=== PATIENT | male | born 1945 | race Caucasian/White ===

== ENCOUNTER 2017-04-21 18:14 | Inpatient (IN) | payer MEDICARE, OTHER ==
[~2017-04-21] VITALS: Ht 172.7 cm; Wt 50.5 kg
[2017-04-21] MEDS ORDERED: SODIUM CHLORIDE 0.9% 1L BAG IV* STA (18:56)
[2017-04-21] MEDS ORDERED: CEFEPIME 1GM/50 ML (PMX) 50 ML IVPB ONE (19:00)
[2017-04-21] MEDS ORDERED: IBUPROFEN 600 MG TAB PO ONE (19:00)
[2017-04-21 19:24] LABS: ABNORMAL IP MESSAGE 1; BASOPHILS % 0.2 % (0.0-2.0); HEMATOCRIT 42.7 % (42.0-52.0); HEMOGLOBIN 14.3 g/dl (14.0-18.0); LYMPHOCYTES # 0.6 10^3/ul (0.8-2.9); LYMPHOCYTES % 3.4 % (15.0-51.0); MEAN CORPUSCULAR HEMOGLOBIN 29.9 pg (29.0-33.0); MEAN CORPUSCULAR HGB CONC 33.5 g/dl (32.0-37.0); MEAN CORPUSCULAR VOLUME 89.1 fl (82.0-101.0); MEAN PLATELET VOLUME 9.3 fl (7.4-10.4); MONOCYTE # 1.1 10^3/ul (0.3-0.9); MONOCYTES % 6.4 % (0.0-11.0); NEUTROPHILS % 89.5 % (39.0-77.0); PLATELET COUNT 192 10^3/UL (140-415); POSITIVE DIFF @See below; RED BLOOD COUNT 4.79 10^6/ul (4.70-6.10); RED CELL DISTRIBUTION WIDTH 13.7 % (11.5-14.5); WHITE BLOOD COUNT 16.9 10^3/ul (4.8-10.8)
[2017-04-21 19:41] LABS: INR 0.88; PARTIAL THROMBOPLASTIN TIME 26.7 Sec (25.0-35.0); PROTIME 11.9 Sec (12.2-14.2); PT RATIO 0.9
[2017-04-21 19:44] LABS: ALANINE AMINOTRANSFERASE 48 IU/L (13-69); ALBUMIN/GLOBULIN RATIO 1.21; ALKALINE PHOSPHATASE 77 IU/L (42-121); ANION GAP 19 (8-16); ASPARTATE AMINO TRANSFERASE 32 IU/L (15-46); BILIRUBIN,INDIRECT 0.8 mg/dl (0-1.1); BILIRUBIN,TOTAL 0.8 mg/dl (0.2-1.3); BLOOD UREA NITROGEN 21 mg/dl (7-20); CALCIUM 9.5 mg/dl (8.4-10.2); CARBON DIOXIDE 30 mmol/L (21-31); CHLORIDE 96 mmol/L (97-110); CREATININE 0.87 mg/dl (0.61-1.24); GLUCOSE 121 mg/dl (70-220); POTASSIUM 4.2 mmol/L (3.5-5.1); SODIUM 141 mmol/L (135-144); TOTAL PROTEIN 7.3 g/dl (6.1-8.1)
--- NOTE | 2017-04-21 19:51 | RADRPT ---
PROCEDURE: Portable chest x-ray. CLINICAL INDICATION: 71 years of age, male. Weakness. Possible sepsis.. TECHNIQUE: Portable AP view of the chest. COMPARISON: None available. FINDINGS: Cardiomediastinal contours are normal. There are reticulonodular opacities at bilateral lung apices with associated ground-glass opacity wi th mild apical pleural thickening. Mid and lower lung zones are clear. Negative for pleural effusion or pneumothorax. No acute bony abnormality. IMPRESSION: Reticulonodular and ground-glass opacities at bilateral lung apices are nonspecific. They may be du e to typical or atypical tuberculosis or other granulomatous infections. In this clinical setting o f weakness and sepsis, active disease must be considered. Correlation with previous imaging would b e helpful. The patient may benefit from further evaluation with CT. Critical results were discussed with Dr. Chang by Dr. Amee Chen on April 21, 2017 at 07:45 p.m.. RPTAT: HCTS Physician Delvis Date Time Electronically viewed and signed by Physician Delvis on 04/21/2017 19:50 CS/
[2017-04-21 19:57] LABS: ADD UMIC NO; UR ASCORBIC ACID NEGATIVE (NEGATIVE); UR BILIRUBIN (Dip) NEGATIVE (NEGATIVE); UR BLOOD (Dip) NEGATIVE (NEGATIVE); UR CLARITY CLEAR (CLEAR); UR COLOR AMBER (YELLOW); UR GLUCOSE (Dip) NEGATIVE (NEGATIVE); UR KETONES (Dip) TRACE mg/dL (NEGATIVE); UR LEUKOCYTE ESTERASE (Dip) NEGATIVE Leu/ul (NEGATIVE); UR NITRITE (Dip) NEGATIVE (NEGATIVE); UR SPECIFIC GRAVITY (Dip) 1.018 (1.003-1.030); UR TOTAL PROTEIN (Dip) NEGATIVE (NEGATIVE); UR UROBILINOGEN (Dip) 1+ mg/dL (NEGATIVE)
[2017-04-21 19:58] LABS: TROPONIN-I < 0.012 ng/ml (0.00-0.12)
[2017-04-21] MEDS ORDERED: AZITHROMYCIN 500MG/NS (PMX) 250 ML IVPB ONE (20:00)
[2017-04-21] MEDS ORDERED: VANCOMYCIN 1 GM (PMX) 250 ML IVPB SCH (20:00)
[2017-04-21 21:34] VITALS: TEMP 98.5
[2017-04-21] MEDS ORDERED: TAMS0.4C2 PO (21:35)
[2017-04-21] MEDS ORDERED: GABA300C16 PO (21:36)
[2017-04-21] MEDS ORDERED: DOCU-159 PO (21:37)
[2017-04-21] MEDS ORDERED: HYDR-906 PO (21:37)
--- NOTE | 2017-04-21 22:05 | ERA ---
ER Documentation Chief Complaint Date/Time DATE: 04/21/17 TIME: 21:52 Chief Complaint BIB RA FOR EVAL OF DIZZINESS NAUSEA AFTER TAKING NORCO. HAD BACK SX TUES HPI 71-year-old man brought in by EMS from home for nausea and vomiting shortly after using oral opioid analgesics for back pain. He is status post lumbar spine surgery 3 days ago and was prescribed opioids to use for pain control. Daughter who is at the bedside states he has not been eating much after the surgery. He has had clear nonbloody nonbilious emesis 2, no diarrhea, no dysuria, no cough, no headache or blurry vision. Patient denies back pain at this time. ROS All systems reviewed and are negative except as per history of present illness. Medications Home Meds Reported Medications Docusate Sodium* (Docusate Sodium*) 100 Mg Capsule, 100 MG PO BID, #60 CAP 04/21/17 Hydrocodone/Acetaminophen ([place] 5-325 Tablet) 1 Each Tablet, 1 EACH PO Q6H, TAB 04/21/17 Gabapentin* (Gabapentin*) Unknown Strength Capsule, 1 CAP PO QHS, #60 CAP 04/21/17 Tamsulosin Hcl* (Tamsulosin Hcl*) Unknown Strength Cap.er.24h, 1 CAP PO HS, CAP 04/21/17 Allergies Allergies: Coded Allergies: No Known Allergy (Unverified , 04/21/17) PMhx/Soc Hypertension, prostate problems, recent lumbar spine surgery Medical and Surgical Hx: pt denies Medical Hx, pt denies Surgical Hx History of Surgery: No Anesthesia Reaction: No Hx Neurological Disorder: No Hx Respiratory Disorders: No Hx Cardiac Disorders: No Hx Psychiatric Problems: No Hx Miscellaneous Medical Probl: No Hx Alcohol Use: No Hx Substance Use: No Hx Tobacco Use: No Smoking Status: Never smoker FmHx Family History: No diabetes Physical Exam Vitals Vital Signs Date Time Temp Pulse Resp B/P Pulse Ox O2 Delivery O2 Flow Rate FiO2 04/21/17 21:34 98.5 76 18 113/68 98 Room Air 04/21/17 18:16 101.5 100 19 132/69 99 Physical Exam GENERAL: Well-developed, dehydrated, febrile HEENT: Dry mucous membranes, pink conjunctiva, no cervical spine tenderness or step-off deformities, no goiter, no jaundice or icterus, extraocular movements intact without pain. No submandibular induration, and no pharyngeal erythema NEURO: Alert and oriented 3, cranial nerves II through XII intact bilaterally, pupils constricted but reactive bilaterally, no focal deficits or facial asymmetry, sensation intact distally Strength 5/5 in upper and lower extremities bilaterally CARDIAC: Tachycardic and regular, no murmurs rubs or gallops LUNGS: Poor breath sounds bilaterally ABDOMEN: Soft nontender, no guarding, no rigidity, no rebound, no psoas sign no obturator sign. Normoactive bowel sounds SKIN: Warm and dry to touch, the surgical incision site to the mid lumbar spine appears clean and dry with granulation tissue present, no midline spinous process tenderness to touch, no skin induration or erythema, no purulent discharge EXTREMITIES: No clubbing cyanosis or edema, calves are bilaterally symmetrical, no Homans sign, no popliteal cord sign. Distal pulses equal and bilateral PSYCH: Normal affect without agitation or irritability Result Diagram: 04/21/17190404/21/171904 Results 24 hrs Laboratory Tests Test 04/21/17 19:05 04/21/17 19:30 04/21/17 21:02 White Blood Count 16.910^3/ul Red Blood Count 4.7910^6/ul Hemoglobin 14.3g/dl Hematocrit 42.7% Mean Corpuscular Volume 89.1fl Mean Corpuscular Hemoglobin 29.9pg Mean Corpuscular Hemoglobin Concent 33.5g/dl Red Cell Distribution Width 13.7% Platelet Count 15657^3/UL Mean Platelet Volume 9.3fl Neutrophils % 89.5% Lymphocytes % 3.4% Monocytes % 6.4% Eosinophils % 0.0% Basophils % 0.2% Nucleated Red Blood Cells % 0.0/100WBC Neutrophils # (Manual) 15.110^3/ul Lymphocytes # 0.610^3/ul Monocytes # 1.110^3/ul Eosinophils # 0.010^3/ul Basophils # 0.010^3/ul Nucleated Red Blood Cells # 0.010^3/ul Prothrombin Time 11.9Sec Prothrombin Time Ratio 0.9 INR International Normalized Ratio 0.88 Activated Partial Thromboplast Time 26.7Sec Sodium Level 141mmol/L Potassium Level 4.2mmol/L Chloride Level 96mmol/L Carbon Dioxide Level 30mmol/L Anion Gap 19 Blood Urea Nitrogen 21mg/dl Creatinine 0.87mg/dl Glucose Level 121mg/dl Lactic Acid Level 1.5mmol/L 1.0mmol/L Calcium Level 9.5mg/dl Total Bilirubin 0.8mg/dl Direct Bilirubin 0.00mg/dl Indirect Bilirubin 0.8mg/dl Aspartate Amino Transf (AST/SGOT) 32IU/L Alanine Aminotransferase (ALT/SGPT) 48IU/L Alkaline Phosphatase 77IU/L Troponin I < 0.012ng/ml Total Protein 7.3g/dl Albumin 4.0g/dl Globulin 3.30g/dl Albumin/Globulin Ratio 1.21 Lipase 45U/L Urine Color GWENDOLYN Urine Clarity CLEAR Urine pH 5.0 Urine Specific [place] 1.018 Urine Ketones TRACEmg/dL Urine Nitrite NEGATIVEmg/dL Urine Bilirubin NEGATIVEmg/dL Urine Urobilinogen 1+mg/dL Urine Leukocyte Esterase NEGATIVELeu/ul Urine Hemoglobin NEGATIVEmg/dL Urine Glucose NEGATIVEmg/dL Urine Total Protein NEGATIVEmg/dl Current Medications Medications (Trade) Dose Ordered Sig/Vickie Route PRN Reason Start Time Stop Time Status Last Admin Dose Admin Sodium Chloride (NS) 2,000 ml BOLUS OVER 2 HOURS STAT IV* 04/21/17 18:56 04/21/17 18:59 DC 04/21/17 19:28 Ibuprofen 600 mg 600 mg ONCE ONCE PO 04/21/17 19:00 04/21/17 19:01 DC 04/21/17 19:27 Cefepime HCl 50 ml @ 100 mls/hr ONCE ONCE IVPB 04/21/17 19:00 04/21/17 19:29 DC 04/21/17 19:28 Azithromycin 250 ml @ 250 mls/hr ONCE ONCE IVPB 04/21/17 20:00 04/21/17 21:40 DC 04/21/17 21:47 Vancomycin HCl (Vancocin) 250 ml @ 125 mls/hr ONCE IVPB 04/21/17 20:00 04/21/17 21:59 DC Procedures/MDM IV line was established patient was placed on director of cardiac rehabilitation rhythm strip revealed a sinus tachycardia at 100 bpm. Patient was febrile. Blood and urine cultures have been ordered results are pending I will follow-up. EKG performed, read by me: 92 bpm, normal sinus rhythm, normal axis, no acute ST segment changes, narrow QRS complex, with good R-wave progression in precordial leads. One view chest x-ray performed, read by me there are no acute infiltrates, no pneumothorax, no end of the diaphragm. Of note radiologist read bilateral upper lobe ground-glass opacities, which in the setting of fever is concerning for tuberculosis. I administered 2 L normal saline intravenously for dehydration, Zofran 4 mg IV, cefepime 1 g IV, vancomycin 1 g IV. For fever patient received ibuprofen 600 mg p.o. Patient had no further episodes of vomiting. CBC reveals a leukocytosis of 17, electrolytes revealed dehydration with a BUN/ creatinine of 21/0.9, liver function tests normal, troponin negative. Urine analysis negative for infection. Patient's infectious symptoms have not stabilized and the patient is at risk of rapid decompensation. The patient will be admitted for careful hydration, antibiotic therapy, and infectious source control. Severe Sepsis Assessment: Infectious Source: Pulmonary No signs of endorgan damage Severe Sepsis Managment: Blood Cultures X 2 before broad spectrum antibiotics initiated within 3 hours of recognition. 30 ml/kg NS bolus Completed Initial Lactate: 1.5 Repeat Lactate 1.0 Critical Care: Time: 40 minutes, this was time separate from other billable procedures. Treatments/Evaluations: Emergent fluid management, while maintaining close respiratory support. Immediate broad spectrum antibiotic therapy. Simultaneous assessment for possible sources in order to direct therapy. Consideration for invasive and chemical support to prevent respiratory or cardiac collapse. Septic Shock Assessment (1 hour post 30 ml/kg fluid bolus): Hypotension (SBP < 90 or 40 mmHg drop, MAP < 65): No Lactic acid > 4.0 No Perfusion Reassessment for Septic Shock: Temp 98.8, pulse 88, respiratory rate 18 breaths per minute, blood pressure 120/ 80. Heart Exam: Regular rate rhythm Lung Exam: No Crackles Capillary Refill: Less than 2 second Peripheral Pulses: Radially present Skin: Correll warm and dry Hypotensive Treatment (not required for isolated lactic acid elevation): Comfort Care: No Central LIne: Not indicated Vasopressor started: Not indicated I considered further perfusion assessment with CVP measurement, SCVO2, bedside ultrasound volume assessment, passive leg raise, trial of further fluid bolus. And preceded with IV fluid hydration, antibiotics, and isolation Accepting Care Team: Current data and ongoing care discussed. Time: Time of admission Primary Provider: Hospitalist Consulting: Infectious disease Outstanding Data: none Departure Diagnosis: Primary Impression: Nausea and vomiting Qualified Code: R11.2 - Non-intractable vomiting with nausea, unspecified vomiting type Additional Impressions: Dehydration Pneumonia Qualified Code: J18.9 - Pneumonia of both upper lobes due to infectious organism Sepsis Qualified Code: A41.9 - Sepsis, due to unspecified organism Condition: CURRY Nicolas MD Apr 21, 2017 22:03
--- NOTE | 2017-04-21 23:08 | RADRPT ---
PROCEDURE: CT Abdomen and Pelvis without contrast. CLINICAL INDICATION: Abdominal pain. TECHNIQUE: A CT scan of the abdomen and pelvis was performed without intravenous contrast. Cerna l and sagittal reformatted images were generated. Images were reviewed on a high-resolution PACS wor kstation. CTDIvol: 7.67 mGy. DLP: 371.72 mGy-cm. One or more of the following dose reduction techniques were used: - Automated exposure control. - Adjustment of the mA and/or kV according to patient size. - Use of iterative reconstruction technique. COMPARISON: None. FINDINGS: The lung bases are clear. Evaluation of the abdominal and pelvic viscera is limited by the lack of oral and intravenous contra st. The liver is unremarkable. There are stones in the gallbladder. The common bile duct is not dilated . The spleen is not enlarged. No pancreatic lesion is identified and there is no pancreatic ductal d ilatation. The adrenal glands are unremarkable. The kidneys are normal in size. There is no perinephric fat stranding. No hydronephrosis is seen. No urinary stone is identified. There is a small hiatal hernia. The small and large bowel are normal in caliber. There is no bowel w all thickening. There is a moderate volume of retained stool in the colon. The appendix is not iden tified. The urinary bladder is unremarkable. The pelvic organs are within normal limits. No lymphadenopathy is identified. There is no ascites. No pneumoperitoneum is seen. There are mild a rterial calcifications. No suspicious osseous lesion is idenitified. IMPRESSION: 1. No inflammation, mass, or lymphadenopathy. 2. No obstructive uropathy or urinary stone. 3. The appendix is not identified. If there is concern for appendicitis, close clinical follow-up is recommended. 4. Cholelithiasis. 5. Small hiatal hernia. 6. Moderate volume of retained stool in the colon. RPTAT: HTAR .Martinez Sim MD, Date Time Electronically viewed and signed by .Martinez Sim MD, on 04/21/2017 23:08 .R/
--- NOTE | 2017-04-21 23:27 | HP ---
Date/Time of Note Date/Time of Note DATE: 04/21/17 TIME: 23:27 Assessment/Plan VTE Prophylaxis VTE Prophylaxis Intervention: LMWH Assessment/Plan Assessment/Plan 71-year-old male who presents with fever cough and vomiting managed for the following 1. Sepsis likely secondary to #2 * Patient meets sepsis criteria with leukocytosis, fever and tachycardia 2. Biapical pneumonia likely healthcare associated in view of recent surgery 3 days ago * Radiology findings were concerning for possible tuberculosis and as such patient is on isolation, however he does not have risk factors for tuberculosis. Will however maintain isolation and get CT chest to better define lung parenchyma and proceed from there. 3. Recent back surgery laminectomy stable 4. Hypertension currently with good control 5. Chronic BPH PLAN: In addition to the above, we will provide supportive care,pain control, antiemetics, empiric abx , and resume home meds and titrate as needed. Further interventions will be dependent on clinical course and findings Prophylaxis : Lovenox / Pepcid HPI/ROS Admit Date/Time Admit Date/Time 04/21/17 Hx of Present Illness 71-year-old male with a past medical history of hypertension and BPH who recently underwent laminectomy 3 days ago was brought to the emergency room today by his daughter because of fever cough vomiting and abdominal pain. Symptoms started about a day ago and have been worsening. He denies chest pain or shortness of breath. Denies headaches, vision changes, passing out episodes or neurologic symptoms. Preliminary chest x-ray in the emergency room is concerning for biapical pneumonia, patient is being admitted for further workup and management. He has no hx of travel or contact with persons with chronic cough. ROS 12 point review if systems was done and pertinent findings are as noted. PMH/Family/Social Past Medical History * BPH * HTN Past Surgical History * appendectomy * recent Laminectomy Family History Significant Family History: no pertinent family hx Social History Smoking Status: Never smoker Exam/Review of Systems Vital Signs Vitals VS - Last 72 Hours, by Label Date Time Temp Pulse Resp B/P Pulse Ox O2 Delivery O2 Flow Rate FiO2 04/21/17 21:34 98.5 76 18 113/68 98 Room Air 04/21/17 18:16 101.5 100 19 132/69 99 Vital Signs Date Time Temp Pulse Resp B/P Pulse Ox O2 Delivery O2 Flow Rate FiO2 04/21/17 21:34 98.5 76 18 113/68 98 Room Air Exam Constitutional: alert, oriented, No distress Head: normocephalic Eyes: PERRL ENMT: mucosa pink and moist Neck: supple Respiratory: diminished breath sounds, No crackles/rales Cardiovascular: regular rate and rhythm, No murmurs/extra sounds Gastrointestinal: bowel sounds, non-tender, soft Extremities: No edema Neurological: nl mental status Skin: other Lymph: other (surgical site on his back is healing an d is clean) Labs Result Diagram: 04/21/17190404/21/171904 Procedures Procedures Laboratory Tests Test 04/21/17 19:05 04/21/17 19:30 04/21/17 21:02 White Blood Count 16.910^3/ul Red Blood Count 4.7910^6/ul Hemoglobin 14.3g/dl Hematocrit 42.7% Mean Corpuscular Volume 89.1fl Mean Corpuscular Hemoglobin 29.9pg Mean Corpuscular Hemoglobin Concent 33.5g/dl Red Cell Distribution Width 13.7% Platelet Count 21168^3/UL Mean Platelet Volume 9.3fl Neutrophils % 89.5% Lymphocytes % 3.4% Monocytes % 6.4% Eosinophils % 0.0% Basophils % 0.2% Nucleated Red Blood Cells % 0.0/100WBC Neutrophils # (Manual) 15.110^3/ul Lymphocytes # 0.610^3/ul Monocytes # 1.110^3/ul Eosinophils # 0.010^3/ul Basophils # 0.010^3/ul Nucleated Red Blood Cells # 0.010^3/ul Prothrombin Time 11.9Sec Prothrombin Time Ratio 0.9 INR International Normalized Ratio 0.88 Activated Partial Thromboplast Time 26.7Sec Sodium Level 141mmol/L Potassium Level 4.2mmol/L Chloride Level 96mmol/L Carbon Dioxide Level 30mmol/L Anion Gap 19 Blood Urea Nitrogen 21mg/dl Creatinine 0.87mg/dl Glucose Level 121mg/dl Lactic Acid Level 1.5mmol/L 1.0mmol/L Calcium Level 9.5mg/dl Total Bilirubin 0.8mg/dl Direct Bilirubin 0.00mg/dl Indirect Bilirubin 0.8mg/dl Aspartate Amino Transf (AST/SGOT) 32IU/L Alanine Aminotransferase (ALT/SGPT) 48IU/L Alkaline Phosphatase 77IU/L Troponin I < 0.012ng/ml Total Protein 7.3g/dl Albumin 4.0g/dl Globulin 3.30g/dl Albumin/Globulin Ratio 1.21 Lipase 45U/L Urine Color GWENDOLYN Urine Clarity CLEAR Urine pH 5.0 Urine Specific [place] 1.018 Urine Ketones TRACEmg/dL Urine Nitrite NEGATIVEmg/dL Urine Bilirubin NEGATIVEmg/dL Urine Urobilinogen 1+mg/dL Urine Leukocyte Esterase NEGATIVELeu/ul Urine Hemoglobin NEGATIVEmg/dL Urine Glucose NEGATIVEmg/dL Urine Total Protein NEGATIVEmg/dl Current Medications Medications (Trade) Dose Ordered Sig/Vickie Route PRN Reason Start Time Stop Time Status Last Admin Dose Admin Sodium Chloride (NS) 2,000 ml BOLUS OVER 2 HOURS STAT IV* 04/21/17 18:56 04/21/17 18:59 DC 04/21/17 19:28 2,000 ML Ibuprofen 600 mg 600 mg ONCE ONCE PO 04/21/17 19:00 04/21/17 19:01 DC 04/21/17 19:27 600 MG Cefepime HCl 50 ml @ 100 mls/hr ONCE ONCE IVPB 04/21/17 19:00 04/21/17 19:29 DC 04/21/17 19:28 100 MLS/HR Azithromycin 250 ml @ 250 mls/hr ONCE ONCE IVPB 04/21/17 20:00 04/21/17 21:40 DC 04/21/17 21:47 250 MLS/HR Vancomycin HCl (Vancocin) 250 ml @ 125 mls/hr ONCE IVPB 04/21/17 20:00 04/21/17 21:59 DC 04/21/17 23:06 125 MLS/HR PROCEDURE: CT Abdomen and Pelvis without contrast. CLINICAL INDICATION: Abdominal pain. TECHNIQUE: A CT scan of the abdomen and pelvis was performed without intravenous contrast. Coronal and sagittal reformatted images were generated. Images were reviewed on a high-resolution PACS workstation. CTDIvol: 7.67 mGy. DLP: 371.72 mGy-cm. One or more of the following dose reduction techniques were used: - Automated exposure control. - Adjustment of the mA and/or kV according to patient size. - Use of iterative reconstruction technique. COMPARISON: None. FINDINGS: The lung bases are clear. Evaluation of the abdominal and pelvic viscera is limited by the lack of oral and intravenous contrast. The liver is unremarkable. There are stones in the gallbladder. The common bile duct is not dilated. The spleen is not enlarged. No pancreatic lesion is identified and there is no pancreatic ductal dilatation. The adrenal glands are unremarkable. The kidneys are normal in size. There is no perinephric fat stranding. No hydronephrosis is seen. No urinary stone is identified. There is a small hiatal hernia. The small and large bowel are normal in caliber. There is no bowel wall thickening. There is a moderate volume of retained stool in the colon. The appendix is not identified. The urinary bladder is unremarkable. The pelvic organs are within normal limits. No lymphadenopathy is identified. There is no ascites. No pneumoperitoneum is seen. There are mild arterial calcifications. No suspicious osseous lesion is idenitified. IMPRESSION: 1. No inflammation, mass, or lymphadenopathy. 2. No obstructive uropathy or urinary stone. 3. The appendix is not identified. If there is concern for appendicitis, close clinical follow-up is recommended. 4. Cholelithiasis. 5. Small hiatal hernia. 6. Moderate volume of retained stool in the colon. PROCEDURE: Portable chest x-ray. CLINICAL INDICATION: 71 years of age, male. Weakness. Possible sepsis.. TECHNIQUE: Portable AP view of the chest. COMPARISON: None available. FINDINGS: Cardiomediastinal contours are normal. There are reticulonodular opacities at bilateral lung apices with associated ground-glass opacity with mild apical pleural thickening. Mid and lower lung zones are clear. Negative for pleural effusion or pneumothorax. No acute bony abnormality. IMPRESSION: Reticulonodular and ground-glass opacities at bilateral lung apices are nonspecific. They may be due to typical or atypical tuberculosis or other granulomatous infections. In this clinical setting of weakness and sepsis, active disease must be considered. Correlation with previous imaging would be helpful. The patient may benefit from further evaluation with CT. Critical results were discussed with Dr. Chang by Dr. Amee Chen on April 21, 2017 at 07:45 p.m.. RPTAT: HCTS Physician Delvis Date Time Electronically viewed and signed by Derrick Chen Physician on 04/21/2017 19: 50 CHARO ANDRADE Apr 21, 2017 23:27
[2017-04-21 23:30] VITALS: BP 101/56; PULSE 68; RESP 19
[2017-04-21 23:52] VITALS: Ht 172.7 cm; Wt 50.5 kg
[2017-04-22] MEDS ORDERED: ONDANSETRON 4 MG INJ IV PRN (02:30)
[2017-04-22 05:08] VITALS: BP 108/53; RESP 18
[2017-04-22 06:03] LABS: BASOPHILS % 0.2 % (0.0-2.0); EOSINOPHILS % 0.2 % (0.0-7.0); HEMATOCRIT 36.5 % (42.0-52.0); HEMOGLOBIN 11.7 g/dl (14.0-18.0); LYMPHOCYTES # 1.7 10^3/ul (0.8-2.9); LYMPHOCYTES % 14.3 % (15.0-51.0); MEAN CORPUSCULAR HGB CONC 32.1 g/dl (32.0-37.0); MEAN CORPUSCULAR VOLUME 90.3 fl (82.0-101.0); MEAN PLATELET VOLUME 9.8 fl (7.4-10.4); MONOCYTE # 0.9 10^3/ul (0.3-0.9); MONOCYTES % 7.6 % (0.0-11.0); NEUTROPHILS % 77.3 % (39.0-77.0); PLATELET COUNT 179 10^3/UL (140-415); RED BLOOD COUNT 4.04 10^6/ul (4.70-6.10); WHITE BLOOD COUNT 12.2 10^3/ul (4.8-10.8)
[2017-04-22 06:39] LABS: CALCIUM 8.5 mg/dl (8.4-10.2); CREATININE 0.61 mg/dl (0.61-1.24); MAGNESIUM 2.1 mg/dl (1.7-2.5); PHOSPHORUS 3.8 mg/dl (2.5-4.9); POTASSIUM 4.5 mmol/L (3.5-5.1)
[2017-04-22] MEDS: CEFTRIAXONE 1 GM/50 ML (PMX) 50 ML IVPB SCH (09:13)
[2017-04-22] MEDS: FAMOTIDINE 20 MG TAB PO SCH ×2 (09:14→20:33)
[2017-04-22] MEDS: DOCUSATE SODIUM 100 MG CAP PO SCH ×2 (09:14→20:34)
[2017-04-22 14:28] VITALS: BP 110/55; RESP 18
--- NOTE | 2017-04-22 15:36 | PN ---
Date/Time of Note Date/Time of Note DATE: 04/22/17 TIME: 15:31 Assessment/Plan VTE Prophylaxis VTE Prophylaxis Intervention: SCD's Lines/Catheters IV Catheter Type (from Nrsg): Saline Lock Assessment/Plan Assessment/Plan 1. Abdominal pain with vomiting, probably constipation related, resolved 2. Cholelithiasis,unlikely the cause of #1, normal LFTs 3. Leukocytosis, improving, ?stress related 4. Apical infiltrates in lungs, follow up with CT scan 5. Recent lumbar laminectomy, stable, PT Subjective 24 Hr Interval Summary Free Text/Dictation asymptomatic today Exam/Review of Systems Vital Signs Vitals Vital Signs Date Time Temp Pulse Resp B/P Pulse Ox O2 Delivery O2 Flow Rate FiO2 04/22/17 14:28 98.0 70 18 110/55 97 04/21/17 23:30 Room Air Intake and Output 04/21/17 04/21/17 04/22/17 15:00 23:00 07:00 Intake Total 450 ml Output Total 800 ml Balance -350 ml Exam Constitutional: alert, oriented, well developed Psych: nl mood/affect, no complaints Head: atraumatic, normocephalic Eyes: EOMI, PERRL, nl conjunctiva, nl lids ENMT: nl external ears & nose, nl lips & teeth, nl nasal mucosa & septum Neck: non-tender, supple Respiratory: clear to auscultation, normal air movement, No congested cough, No crackles/rales, No diminished breath sounds, No intercostal retraction, No labored breathing, No other, No respirations, No tactile fremitus, No wheezing Cardiovascular: nl pulses, regular rate and rhythm, No S3, No S4, No bruits, No diastolic murmur, No edema, No gallop, No irregular rhythm, No jugular venous distention (JVD), No murmurs/extra sounds, No other, No rub, No systolic murmur Gastrointestinal: nl liver, spleen, non-tender, soft, No ascites, No bowel sounds, No distended, No firm, No hepatomegaly, No mass , No other, No rebound or guarding, No splenomegaly, No surgical scars, No tender Musculoskeletal: nl extremities to inspection Extremities: normal pulses, No calf tenderness, No clubbing, No cyanosis, No edema, No other, No palpable cord, No pitting pedal edema, No tenderness Neurological: [employer] II-XII intact, nl mental status, nl speech, nl strength Skin: nl turgor Lymph: nl lymph nodes Results Result Diagram: 04/22/17 0516 04/22/17 0516 Results 24 hrs Laboratory Tests Test 04/21/17 19:05 04/21/17 19:30 04/21/17 21:02 04/21/17 23:15 White Blood Count 16.9 H Red Blood Count 4.79 Hemoglobin 14.3 Hematocrit 42.7 Mean Corpuscular Volume 89.1 Mean Corpuscular Hemoglobin 29.9 Mean Corpuscular Hemoglobin Concent 33.5 Red Cell Distribution Width 13.7 Platelet Count 192 Mean Platelet Volume 9.3 Neutrophils % 89.5 H Lymphocytes % 3.4 L Monocytes % 6.4 Eosinophils % 0.0 Basophils % 0.2 Nucleated Red Blood Cells % 0.0 Neutrophils # (Manual) 15.1 H Lymphocytes # 0.6 L Monocytes # 1.1 H Eosinophils # 0.0 Basophils # 0.0 Nucleated Red Blood Cells # 0.0 Prothrombin Time 11.9 L Prothrombin Time Ratio 0.9 INR International Normalized Ratio 0.88 Activated Partial Thromboplast Time 26.7 Sodium Level 141 Potassium Level 4.2 Chloride Level 96 L Carbon Dioxide Level 30 Anion Gap 19 H Blood Urea Nitrogen 21 H Creatinine 0.87 Glucose Level 121 Lactic Acid Level 1.5 1.0 1.8 Calcium Level 9.5 Total Bilirubin 0.8 Direct Bilirubin 0.00 Indirect Bilirubin 0.8 Aspartate Amino Transf (AST/SGOT) 32 Alanine Aminotransferase (ALT/SGPT) 48 Alkaline Phosphatase 77 Troponin I < 0.012 Total Protein 7.3 Albumin 4.0 Globulin 3.30 H Albumin/Globulin Ratio 1.21 Lipase 45 Urine Color GWENDOLYN Urine Clarity CLEAR Urine pH 5.0 Urine Specific [place] 1.018 Urine Ketones TRACE A Urine Nitrite NEGATIVE Urine Bilirubin NEGATIVE Urine Urobilinogen 1+ H Urine Leukocyte Esterase NEGATIVE Urine Hemoglobin NEGATIVE Urine Glucose NEGATIVE Urine Total Protein NEGATIVE Test 04/22/17 05:16 White Blood Count 12.2 #H Red Blood Count 4.04 L Hemoglobin 11.7 L Hematocrit 36.5 L Mean Corpuscular Volume 90.3 Mean Corpuscular Hemoglobin 29.0 Mean Corpuscular Hemoglobin Concent 32.1 Red Cell Distribution Width 14.0 Platelet Count 179 Mean Platelet Volume 9.8 Neutrophils % 77.3 H Lymphocytes % 14.3 L Monocytes % 7.6 Eosinophils % 0.2 Basophils % 0.2 Nucleated Red Blood Cells % 0.0 Neutrophils # (Manual) 9.4 H Lymphocytes # 1.7 Monocytes # 0.9 Eosinophils # 0.0 Basophils # 0.0 Nucleated Red Blood Cells # 0.0 Sodium Level 140 Potassium Level 4.5 Chloride Level 103 Carbon Dioxide Level 30 Anion Gap 12 # Blood Urea Nitrogen 15 Creatinine 0.61 Glucose Level 103 Hemoglobin A1c 5.6 Calcium Level 8.5 Phosphorus Level 3.8 Magnesium Level 2.1 Medications Medications Current Medications Acetaminophen/ Hydrocodone Bitart 1 tab 1 tab Q6H PRN PO pain; Start 04/22/17 at 02:30 Ceftriaxone Sodium 50 ml @ 100 mls/hr Q24H IVPB Last administered on 09:13; Admin Dose 100 MLS/HR; Start 04/22/17 at 09:00 Azithromycin/ Sodium Chloride (Zithromax/NS) 250 ml @ 250 mls/hr Q24H IVPB ; Start 04/22/17 at 22:00 Docusate Sodium (Colace) 100 mg BID PO Last administered on 04/22/17 09:14; Admin Dose 100 MG; Start 04/22/17 at 09:00 Ondansetron HCl (Zofran Inj) 4 mg Q6H PRN IV NAUSEA AND/OR VOMITING; Start at 02:30 Famotidine (Pepcid) 20 mg BID PO Last administered on 04/22/17 09:14; Admin Dose 20 MG; Start 04/22/17 at 09:00 DAKOTA HAM MD Apr 22, 2017 15:36
[2017-04-22] MEDS ORDERED: SOD CHLORIDE 0.9% 100 ML ONE (15:38)
[2017-04-22] MEDS ORDERED: IOHEXOL 300MG/ML 150 ML BTL ONE (15:38)
--- NOTE | 2017-04-22 17:16 | RADRPT ---
PROCEDURE: CT Chest with contrast. CLINICAL INDICATION: Bilateral apical pneumonia. Evaluate for possible TB. Dyspnea. TECHNIQUE: CT scan of the chest with contrast was performed on a multidetector high-resolution CT scanner. The patient was scanned following the uncomplicated intravenous administration of 85 cc of Omnipaque-300 contrast. Coronal and sagittal reformatted images were obtained from the axial [facility] images. Images were reviewed on a high-resolution PACS workstation. The total exam CTDI equals 4.8 5 mGy and the total exam DLP equals 217.30 mGy-cm. One or more of the following dose reduction techniques were used: - Automated exposure control. - Adjustment of the mA and/or kV according to patient size. - Use of iterative reconstruction technique. COMPARISON: CT 04/21/2017; CHEST 04/21/2017 FINDINGS: The lungs are clear. No focal opacification, effusion, pneumothorax, edema, or nodules are seen. T here is no pulmonary infiltrate. No mass lesion to suggest neoplasm is identified. Benign scarring and architectural distortion is seen in the extreme lung apices bilaterally. Benign chronic bronch iectasis is seen involving the central airways bilaterally as well. There is no evidence for acute pneumonia or active TB. The central tracheobronchial tree is clear. The mediastinum is unremarkable without evidence for mass or lymphadenopathy. The vascular structur es of the mediastinum are normal in course and caliber. Aortic vascular calcifications and coronary artery calcifications are present. The heart size is normal without evidence for pericardial thick ening or effusion. The axillary regions, subpectoral regions, and supraclavicular regions are all unremarkable. The jay rounding chest wall is unremarkable. Imaging obtained through the upper abdomen reveals no acute abn ormality. The surrounding osseous structures are unremarkable. No osteolytic or osteoblastic lesio n is detected. IMPRESSION: 1. No evidence for acute pneumonia or active TB. 2. No mass, lymphadenopathy, or focal acute infiltrate. 3. Significant scarring and chronic changes in the lung apices bilaterally. 4. Benign diffuse cylindrical bronchiectasis involving the central airways. 5. Scattered benign chronic age-related senescent changes. RPTAT: HMJB .Willie Houston MD, MD Date Time Electronically viewed and signed by .Willie Houston MD, MD on 04/22/2017 17:16 .B/
[2017-04-22 21:11] LABS: TIME 2100
[2017-04-22] MEDS: AZITHROMYCIN 250 MG in SOD CHLORIDE 0.9% 250 ML IVPB SCH (21:24)
[2017-04-23 02:00] VITALS: BP 118/70; PULSE 73; RESP 20
[2017-04-23] MEDS: HYDROCODONE/APAP (5/325) TAB PO PRN (05:40)
[2017-04-23 06:19] LABS: BASOPHILS % 0.3 % (0.0-2.0); EOSINOPHILS # 0.1 10^3/ul (0.0-0.5); EOSINOPHILS % 0.9 % (0.0-7.0); HEMATOCRIT 38.4 % (42.0-52.0); HEMOGLOBIN 12.7 g/dl (14.0-18.0); LYMPHOCYTES # 2.1 10^3/ul (0.8-2.9); LYMPHOCYTES % 24.4 % (15.0-51.0); MEAN CORPUSCULAR HEMOGLOBIN 29.7 pg (29.0-33.0); MEAN CORPUSCULAR HGB CONC 33.1 g/dl (32.0-37.0); MEAN CORPUSCULAR VOLUME 89.7 fl (82.0-101.0); MEAN PLATELET VOLUME 9.6 fl (7.4-10.4); MONOCYTE # 0.7 10^3/ul (0.3-0.9); MONOCYTES % 7.9 % (0.0-11.0); NEUTROPHILS % 66.2 % (39.0-77.0); PLATELET COUNT 206 10^3/UL (140-415); RED BLOOD COUNT 4.28 10^6/ul (4.70-6.10); RED CELL DISTRIBUTION WIDTH 13.6 % (11.5-14.5); WHITE BLOOD COUNT 8.7 10^3/ul (4.8-10.8)
[2017-04-23 06:55] LABS: CALCIUM 9.3 mg/dl (8.4-10.2); CREATININE 0.64 mg/dl (0.61-1.24)
[2017-04-23 08:00] VITALS: BP 128/67; RESP 21
[2017-04-23] MEDS: FAMOTIDINE 20 MG TAB PO SCH ×2 (09:11→20:19)
[2017-04-23] MEDS: DOCUSATE SODIUM 100 MG CAP PO SCH ×2 (09:11→20:19)
[2017-04-23] MEDS: CEFTRIAXONE 1 GM/50 ML (PMX) 50 ML IVPB SCH (09:11)
--- NOTE | 2017-04-23 13:27 | PN ---
Date/Time of Note Date/Time of Note DATE: 04/23/17 TIME: 13:24 Assessment/Plan VTE Prophylaxis VTE Prophylaxis Intervention: anti-embolic stocking Lines/Catheters [facility] Saline Lock Assessment/Plan Problems: (1) Essential hypertension Status: Chronic Comment: He is off of medication at this time and stable. If he does need treatment given his benign prostatic hypertrophy doxazosin would be a legitimate choice (2) Benign prostatic hypertrophy (BPH) with incomplete bladder emptying Status: Chronic Comment: Resume tamsulosin (3) Cholelithiasis Status: Chronic Comment: Noted chronic finding not appropriate for surgical intervention at this time Qualifiers: Cholelithiasis location: gallbladder Cholecystitis presence: without cholecystitis Biliary obstruction: without biliary obstruction Qualified Code : K80.20 - Calculus of gallbladder without cholecystitis without obstruction (4) Hiatal hernia Status: Chronic Comment: Noted; incidental finding (5) Abnormal finding on chest xray Status: Chronic Comment: Yulia is well aware of this is a chronic finding. Please see the CT scan reports. This is not an acute active infection risk. If his QuantiFERON gold is positive I would then consider prophylactic therapeutics as is traditionally done. (6) History of appendectomy Status: Chronic Comment: Noted (7) Status post lumbar laminectomy Status: Acute Comment: Continue with rehabilitative care. (8) Dehydration Status: Acute Comment: Resolved. His initial presentation was due to combination of constipation and opiate pain medications. Probable discharge in morning Subjective 24 Hr Interval Summary Free Text/Dictation She complains of pain at the spinal surgical site otherwise all his other symptoms have resolved Exam/Review of Systems Vital Signs Vitals Vital Signs Date Time Temp Pulse Resp B/P Pulse Ox O2 Delivery O2 Flow Rate FiO2 04/23/17 08:00 97.9 54 21 128/67 97 04/23/17 02:00 Room Air Intake and Output 04/22/17 04/22/17 04/23/17 15:00 23:00 07:00 Intake Total 100 ml 840 ml 480 ml Balance 100 ml 840 ml 480 ml Exam Constitutional: alert, oriented Respiratory: clear to auscultation, crackles/rales (At the upper apices bilateral), normal air movement Cardiovascular: nl pulses, regular rate and rhythm Results Result Diagram: 8/26/17 0524 8/26/17 0524 Results 24 hrs Laboratory Tests Test 04/22/17 20:00 04/23/17 05:24 TB Skin Test Induration Pending TB Skin Test Administer Date TB Skin Test Administer Time 2100 TB Skin Test Injection Site Right Upper Forearm White Blood Count 8.7 # Red Blood Count 4.28 L Hemoglobin 12.7 L Hematocrit 38.4 L Mean Corpuscular Volume 89.7 Mean Corpuscular Hemoglobin 29.7 Mean Corpuscular Hemoglobin Concent 33.1 Red Cell Distribution Width 13.6 Platelet Count 206 Mean Platelet Volume 9.6 Neutrophils % 66.2 Lymphocytes % 24.4 Monocytes % 7.9 Eosinophils % 0.9 Basophils % 0.3 Nucleated Red Blood Cells % 0.0 Neutrophils # (Manual) 5.7 Lymphocytes # 2.1 Monocytes # 0.7 Eosinophils # 0.1 Basophils # 0.0 Nucleated Red Blood Cells # 0.0 Sodium Level 137 Potassium Level 4.0 Chloride Level 100 Carbon Dioxide Level 28 Anion Gap 13 Blood Urea Nitrogen 15 Creatinine 0.64 Glucose Level 95 Calcium Level 9.3 Medications Medications Current Medications Acetaminophen/ Hydrocodone Bitart 1 tab 1 tab Q6H PRN PO pain Last administered on 04/23/17 05:40; Admin Dose 1 TAB; Start 04/22/17 at 02:30 Ceftriaxone Sodium 50 ml @ 100 mls/hr Q24H IVPB Last administered on 09:11; Admin Dose 100 MLS/HR; Start 04/22/17 at 09:00 Azithromycin/ Sodium Chloride (Zithromax/NS) 250 ml @ 250 mls/hr Q24H IVPB Last administered on 04/22/17 21:24; Admin Dose 250 MLS/HR; Start 04/22/17 at 22:00 Docusate Sodium (Colace) 100 mg BID PO Last administered on 04/23/17 09:11; Admin Dose 100 MG; Start 04/22/17 at 09:00 Ondansetron HCl (Zofran Inj) 4 mg Q6H PRN IV NAUSEA AND/OR VOMITING; Start at 02:30 Famotidine (Pepcid) 20 mg BID PO Last administered on 04/23/17 09:11; Admin Dose 20 MG; Start 04/22/17 at 09:00 ALIDA BASS MD Apr 23, 2017 13:27
[2017-04-23 14:00] VITALS: BP 138/66; RESP 19
[2017-04-23] MEDS ORDERED: MAGNESIUM CITRATE 300 ML BTL PO ONE (14:30)
[2017-04-23 20:00] VITALS: BP 121/66; RESP 20
[2017-04-23] MEDS ORDERED: TAMSULOSIN (SR) 0.4 MG CAP PO SCH (21:00)
[2017-04-23] MEDS: AZITHROMYCIN 250 MG in SOD CHLORIDE 0.9% 250 ML IVPB SCH (21:39)
[2017-04-24 02:00] VITALS: BP 133/64; RESP 20
[2017-04-24] MEDS: HYDROCODONE/APAP (5/325) TAB PO PRN (04:08)
[2017-04-24 06:21] LABS: BASOPHILS % 0.4 % (0.0-2.0); EOSINOPHILS # 0.2 10^3/ul (0.0-0.5); EOSINOPHILS % 1.8 % (0.0-7.0); HEMATOCRIT 38.1 % (42.0-52.0); HEMOGLOBIN 12.3 g/dl (14.0-18.0); LYMPHOCYTES # 1.7 10^3/ul (0.8-2.9); LYMPHOCYTES % 20.5 % (15.0-51.0); MEAN CORPUSCULAR HEMOGLOBIN 29.2 pg (29.0-33.0); MEAN CORPUSCULAR HGB CONC 32.3 g/dl (32.0-37.0); MEAN CORPUSCULAR VOLUME 90.5 fl (82.0-101.0); MEAN PLATELET VOLUME 9.8 fl (7.4-10.4); MONOCYTE # 0.5 10^3/ul (0.3-0.9); MONOCYTES % 6.7 % (0.0-11.0); NEUTROPHILS % 70.4 % (39.0-77.0); PLATELET COUNT 217 10^3/UL (140-415); RED BLOOD COUNT 4.21 10^6/ul (4.70-6.10); RED CELL DISTRIBUTION WIDTH 13.4 % (11.5-14.5); WHITE BLOOD COUNT 8.1 10^3/ul (4.8-10.8)
[2017-04-24 06:56] LABS: CALCIUM 8.9 mg/dl (8.4-10.2); CREATININE 0.68 mg/dl (0.61-1.24)
[2017-04-24 08:00] VITALS: BP 136/62; RESP 19
[2017-04-24] MEDS: DOCUSATE SODIUM 100 MG CAP PO SCH (09:10)
[2017-04-24] MEDS: CEFTRIAXONE 1 GM/50 ML (PMX) 50 ML IVPB SCH (09:10)
[2017-04-24] MEDS: FAMOTIDINE 20 MG TAB PO SCH (09:10)
--- NOTE | 2017-04-24 12:51 | PDOCDIS ---
Discharge Instructions DIAGNOSIS Discharge Diagnosis Dehydration; BPH; hypertension; no hernias; cholelithiasis; abnormal chest x- ray with old granulomatous disease. CONDITION Patient Condition: Good HOME CARE INSTRUCTIONS: Special Diet: low fat low choles ACTIVITY: Activity Restrictions: No Restrictions Do not operate Machinery Do not operate Power Tool FOLLOW UP/APPOINTMENTS Follow-up Plan Follow-up with primary care physician-Dr. Murray in 1 week ALIDA BASS MD Apr 24, 2017 12:51
[2017-04-24] MEDS ORDERED: FAMO20TA18 PO (12:53)
[2017-04-24] MEDS ORDERED: CIPR500T4 PO (12:53)
--- NOTE | 2017-04-24 12:56 | DS ---
Date/Time of Note Date/Time of Note DATE: 04/24/17 TIME: 12:53 Discharge Summary Admission/Discharge Info Admit Date/Time Apr 21, 2017 at 20:52 Discharge Date/Time April 24, 2017 Discharge Diagnosis Dehydration; BPH; hypertension; no hernias; cholelithiasis; abnormal chest x- ray with old granulomatous disease. Enterobacter UTI Patient Condition: Fair Procedures CT scan chest; CT scan abdomen Hx of Present Illness 71-year-old male with a past medical history of hypertension and BPH who recently underwent laminectomy 3 days ago was brought to the emergency room today by his daughter because of fever cough vomiting and abdominal pain. Symptoms started about a day ago and have been worsening. He denies chest pain or shortness of breath. Denies headaches, vision changes, passing out episodes or neurologic symptoms. Preliminary chest x-ray in the emergency room is concerning for biapical pneumonia, patient is being admitted for further workup and management. He has no hx of travel or contact with persons with chronic cough. Hospital Course Pleasant 71-year-old gentleman admitted to the hospital. His workup demonstrated Enterobacter UTI that was sensitive to most drugs. He is very proved remarkably. Please note part of his symptoms undoubtedly were also due to obstipation. Is now improved well and is stable for discharge home. His rehabilitation potential is good he has no known communicable diseases he is not a hazard to himself or others. Follow up with his primary care physician within 1 week and with his orthopedic surgeon as scheduled. Home Meds Active Scripts Ciprofloxacin Hcl* (Ciprofloxacin Hcl*) 500 Mg Tablet, 500 MG PO BID for 7 Days , #14 TAB Prov:ALIDA BASS MD 04/24/17 Famotidine* (Famotidine*) 20 Mg Tablet, 20 MG PO BID for 30 Days, TAB Prov:ALIDA BASS MD 04/24/17 Reported Medications Docusate Sodium* (Docusate Sodium*) 100 Mg Capsule, 100 MG PO BID, #60 CAP 04/21/17 Hydrocodone/Acetaminophen ([place] 5-325 Tablet) 1 Each Tablet, 1 EACH PO Q6H, TAB 04/21/17 Gabapentin* (Gabapentin*) Unknown Strength Capsule, 1 CAP PO QHS, #60 CAP 04/21/17 Tamsulosin Hcl* (Tamsulosin Hcl*) Unknown Strength Cap.er.24h, 1 CAP PO HS, CAP 04/21/17 Follow-up Plan With primary MD within 1 week Primary Care Provider Patrick Murray Time spent on discharge: > 30 minutes Pending Labs Laboratory Tests Test 04/24/17 04:56 White Blood Count 8.110^3/ul (4.8-10.8) Red Blood Count 4.2110^6/ul (4.70-6.10) Hemoglobin 12.3g/dl (14.0-18.0) Hematocrit 38.1% (42.0-52.0) Mean Corpuscular Volume 90.5fl (82.0-101.0) Mean Corpuscular Hemoglobin 29.2pg (29.0-33.0) Mean Corpuscular Hemoglobin Concent 32.3g/dl (32.0-37.0) Red Cell Distribution Width 13.4% (11.5-14.5) Platelet Count 42546^3/UL (140-415) Mean Platelet Volume 9.8fl (7.4-10.4) Neutrophils % 70.4% (39.0-77.0) Lymphocytes % 20.5% (15.0-51.0) Monocytes % 6.7% (0.0-11.0) Eosinophils % 1.8% (0.0-7.0) Basophils % 0.4% (0.0-2.0) Nucleated Red Blood Cells % 0.0/100WBC (0.0-0.0) Neutrophils # (Manual) 5.710^3/ul (1.7-7.5) Lymphocytes # 1.710^3/ul (0.8-2.9) Monocytes # 0.510^3/ul (0.3-0.9) Eosinophils # 0.210^3/ul (0.0-0.5) Basophils # 0.010^3/ul (0.0-0.1) Nucleated Red Blood Cells # 0.010^3/ul (0.0-0.0) Sodium Level 142mmol/L (135-144) Potassium Level 4.0mmol/L (3.5-5.1) Chloride Level 99mmol/L (97-110) Carbon Dioxide Level 30mmol/L (21-31) Anion Gap 17 (8-16) Blood Urea Nitrogen 16mg/dl (7-20) Creatinine 0.68mg/dl (0.61-1.24) Glucose Level 138mg/dl (70-220) Calcium Level 8.9mg/dl (8.4-10.2) ALIDA BASS MD Apr 24, 2017 12:56
[2017-04-24 14:00] VITALS: BP 138/60; RESP 19
[2017-04-27 13:49] LABS: TB-NIL <0.00 IU/mL
== END 2017-04-24 16:10 | disposition home or self-care (01) | DRG 641 ==
LOC: E/R 18:14 → PP2 20:52
PROVIDERS: ADMIT Family Medicine; ATTEND Family Medicine
DX: E86.0 Dehydration (principal); N39.0 Urinary tract infection, site not specified; K80.20 Calculus of gallbladder without cholecystitis without obstruction; B96.89 Other specified bacterial agents as the cause of diseases classified elsewhere; I10 Essential (primary) hypertension; N40.1 Benign prostatic hyperplasia with lower urinary tract symptoms; R39.14 Feeling of incomplete bladder emptying; K59.00 Constipation, unspecified; K31.9 Disease of stomach and duodenum, unspecified; K44.9 Diaphragmatic hernia without obstruction or gangrene; R11.2 Nausea with vomiting, unspecified; R91.8 Other nonspecific abnormal finding of lung field; Z98.890 Other specified postprocedural states
CPT/HCPCS: 36415; 71010; 71260; 74176; 80048; 80053; 81003; 83036; 83605; 83690; 83735; 84100; 84484; 85025; 85610; 85730; 86480; 86580; 87040; 87081; 87086; 87116; 93005; 96374; 96375; J0456; J0692; J0696; J3370; J7030; J7050; Q9967